=== PATIENT | male | born 1985 | race Caucasian/White ===

== ENCOUNTER 2022-09-25 18:49 | Observation (INO) ==
[2022-09-25] MEDS ORDERED: SODIUM CHLORIDE 0.9% 1000ML 1,000 ML IV STA (19:06)
--- NOTE | 2022-09-25 19:42 | XRay Report ---
XR chest 1V portable HISTORY: 37 years-old Male Chest pain, nonspecific acute chest pain COMPARISON: None TECHNIQUE: AP view of the chest FINDINGS: Cardiomediastinal and hilar silhouettes are within normal limits. No pneumothorax, pleural effusion, airspace consolidation or overt pulmonary edema. Bones of the chest appear grossly intact. IMPRESSION: No acute process. ACT 112: Negative or not required by law. The above report was generated using voice recognition software. It may contain grammatical, syntax o r spelling errors. Electronically signed by: Dionte Mishra M.D. 09/25/2022 7:41 PM
[2022-09-25 19:49] LABS: Basophils # (auto) 0.03 K/uL (0-0.2); Basophils % (auto) 0.3 %; Eosinophils # (auto) 0.23 K/uL (0-0.50); Eosinophils % (auto) 2.5 %; Hematocrit (blood only) 46.4 % (42.0-52.0); Immature Granulocytes # (auto) 0.06 K/uL (0.01-0.20); Immature Granulocytes % (auto) 0.7 %; Lymphocytes % (auto) 21.7 %; Mean Corpuscular Hgb Conc 36.6 g/dL (32.0-36.0); Mean Corpuscular Volume 84.7 fL (80.0-100.0); Mean Platelet Volume 10.9 fL (9.4-12.4); Monocytes % (auto) 6.5 %; Neutrophils % (auto) 68.3 %; Platelet Count 230 K/uL (130-400); RDW Coefficient of Variation 11.9 % (11.5-14.5); RDW Standard Deviation 35.8 fL (36.4-46.3); Red Blood Count 5.48 M/uL (4.70-6.10); White Blood Count 9.22 K/ul (4.8-10.8)
[2022-09-25 20:17] LABS: D Dimer < 190 ug/L FEU (0-500); Partial Thromboplastin Ratio 0.8; Partial Thromboplastin Time 23.1 Seconds (21.0-31.0); Prothrombin Time 10.6 Seconds (9.0-12.0)
[2022-09-25 20:19] LABS: BUN Creatinine Ratio 11.7 (10-20); Calcium 9.8 mg/dl (8.5-10.1); Est GFR (African American) 117.9 ml/min; Est GFR (Non-African American) 101.7 ml/min
[2022-09-25 20:27] LABS: Troponin I High Sensitivity 3.2 pg/ml (0-20)
[2022-09-25] MEDS ORDERED: LORazepam 1 MG TAB SL STA (21:04)
[2022-09-25] MEDS ORDERED: METOPROLOL TARTRATE 1 MG/ML VIAL IV STA (21:37)
--- NOTE | 2022-09-25 21:54 | Emergency Department Note ---
History of Present Illness General Chief complaint: Shortness of Breath/Dyspnea Stated complaint: SHORTNESS OF BREATH, DIZZINESS, LIGHTHEADED Time Seen by Provider: 09/25/22 19:02 History of Present Illness Provider complaint: Dizziness Onset (ago): day(s) 1 37-year-old male presents emergency department for dizziness. Patient reports over the last day has been feeling dizzy lightheaded felt like the room was spinning. He also reports shortness of breath. No headache chest pain or fever. No nausea vomiting or diarrhea. No melena or hematochezia. No colin turia. Patient denies any recent travel. No cough or hemoptysis. No recent surgeries. No exogenous hormone usage. Home Medications Medication Instructions Recorded Confirmed Type acetaminophen 500 mg tablet 1,000 mg PO Q6H PRN Pain 09/25/22 09/25/22 History (Tylenol Extra Strength) multivitamin 1 tab PO DAILY 09/25/22 09/25/22 History omeprazole magnesium 20 mg 20 mg PO DAILY PRN .heartburn 09/25/22 09/25/22 H istory tablet,delayed release (Prilosec OTC) Allergies Allergy/AdvReac Type Severity Reaction Status Date / Time No Known Allergies Allergy Unverified 09/25/22 21:28 Past Med/Surg History Medical History (Updated 09/25/22 @ 22:05 by Chad Ramírez) No pertinent family history No pertinent past medical history Surgical History (Updated 09/25/22 @ 21:49 by Chad Ramírez) No pertinent past surgical history Social History Smoking Status: Never smoker Feels Safe at Home: Yes Physical Exam Vital Signs Vital Signs - 24 hr 09/25/22 18:58 09/25/22 19:39 09/25/22 19:41 Temperature 37.1 C Temperature Source Temporal Artery Scan Pulse Rate 124 H Pulse Rate [Left Finger] Pulse Rate from SpO2 Sensor Pulse Rhythm Pulse Rhythm [Left Finger] Pulse Strength [Left Finger] Respiratory Rate 18 Respiratory Effort / Characteristics Non-Labored Spontaneous Non-Labored Respiratory Depth Normal Normal Respiratory Pattern Regular Blood Pressure 175/115 H Blood Pressure [Right Arm] Blood Pressure Mean 135 Blood Pressure Mean [Right Arm] Blood Pressure Position Sitting Blood Pressure Position [Right Arm] Pulse Oximetry 96 99 Oxygen Delivery Method Room Air Room Air Room Air Sepsis Recent Fever Within 48 Hours No Sepsis New/Unexplained Change in Mental Status N/A Sepsis Action Taken by Nursing No Action Required 09/25/22 21:02 09/25/22 19:51 09/25/22 20:00 Temperature Temperature Source Pulse Rate 120 H 101 H 110 H Pulse Rate [Left Finger] Pulse Rate from SpO2 Sensor 102 H 111 H Pulse Rhythm Regular Pulse Rhythm [Left Finger] Pulse Strength [Left Finger] Respiratory Rate 18 22 Respiratory Effort / Characteristics Respiratory Depth Respiratory Pattern Blood Pressure Blood Pressure [Right Arm] Blood Pressure Mean Blood Pressure Mean [Right Arm] Blood Pressure Position Blood Pressure Position [Right Arm] Pulse Oximetry 99 99 98 Oxygen Delivery Method Room Air Sepsis Recent Fever Within 48 Hours Sepsis New/Unexplained Change in Mental Status Sepsis Action Taken by Nursing 09/25/22 20:10 09/25/22 20:20 09/25/22 20:30 Temperature Temperature Source Pulse Rate 110 H 111 H 108 H Pulse Rate [Left Finger] Pulse Rate from SpO2 Sensor 108 H 114 H 110 H Pulse Rhythm Pulse Rhythm [Left Finger] Pulse Strength [Left Finger] Respiratory Rate 15 19 16 Respiratory Effort / Characteristics Respiratory Depth Respiratory Pattern Blood Pressure Blood Pressure [Right Arm] Blood Pressure Mean Blood Pressure Mean [Right Arm] Blood Pressure Position Blood Pressure Position [Right Arm] Pulse Oximetry 98 99 98 Oxygen Delivery Method Sepsis Recent Fever Within 48 Hours Sepsis New/Unexplained Change in Mental Status Sepsis Action Taken by Nursing 09/25/22 20:40 09/25/22 20:50 09/25/22 20:58 Temperature Temperature Source Pulse Rate 116 H 111 H 131 H Pulse Rate [Left Finger] Pulse Rate from SpO2 Sensor 115 H 119 H 133 H Pulse Rhythm Pulse Rhythm [Left Finger] Pulse Strength [Left Finger] Respiratory Rate 20 21 17 Respiratory Effort / Characteristics Respiratory Depth Respiratory Pattern Blood Pressure Blood Pressure [Right Arm] Blood Pressure Mean Blood Pressure Mean [Right Arm] Blood Pressure Position Blood Pressure Position [Right Arm] Pulse Oximetry 97 96 100 Oxygen Delivery Method Sepsis Recent Fever Within 48 Hours Sepsis New/Unexplained Change in Mental Status Sepsis Action Taken by Nursing 09/25/22 20:58 09/25/22 21:00 09/25/22 21:48 Temperature Temperature Source Pulse Rate 124 H 114 H Pulse Rate [Left Finger] Pulse Rate from SpO2 Sensor 123 H Pulse Rhythm Pulse Rhythm [Left Finger] Pulse Strength [Left Finger] Respiratory Rate 21 Respiratory Effort / Characteristics Respiratory Depth Respiratory Pattern Blood Pressure 173/109 H 171/102 H Blood Pressure [Right Arm] Blood Pressure Mean 130 Blood Pressure Mean [Right Arm] Blood Pressure Position Blood Pressure Position [Right Arm] Pulse Oximetry 100 Oxygen Delivery Method Sepsis Recent Fever Within 48 Hours Sepsis New/Unexplained Change in Mental Status Sepsis Action Taken by Nursing 09/25/22 21:51 Temperature Temperature Source Pulse Rate Pulse Rate [Left Finger] 114 H Pulse Rate from SpO2 Sensor Pulse Rhythm Pulse Rhythm [Left Finger] Regular Pulse Strength [Left Finger] Normal Respiratory Rate 18 Respiratory Effort / Characteristics Non-Labored Spontaneous Respiratory Depth Normal Respiratory Pattern Regular Blood Pressure Blood Pressure [Right Arm] 171/102 H Blood Pressure Mean Blood Pressure Mean [Right Arm] 125 Blood Pressure Position Blood Pressure Position [Right Arm] Lying Pulse Oximetry 99 Oxygen Delivery Method Room Air Sepsis Recent Fever Within 48 Hours Sepsis New/Unexplained Change in Mental Status Sepsis Action Taken by Nursing Physical Exam GENERAL: He is oriented to person, place, and time. He appears well-developed and well-nourished. He does not appear distressed. HENT: Exam performed. - Head: Normocephalic and atraumatic. EYES: Conjunctivae and EOM are normal. Right eye exhibits no discharge. Left eye exhibits no discharge. No scleral icterus. NECK: Normal range of motion. Neck supple. No JVD present. CV: Tachycardic rate, regular rhythm, normal heart sounds and intact distal pulses. There is no peripheral edema. Palpable radial pulses bue. PULM/CHEST: Effort normal and breath sounds normal. No respiratory distress. No stridor. He has no wheezes. He has no rales. - Chest Wall: He exhibits no tenderness. ABD: The abdomen is soft. He has no distension. No mass is present. There is no tenderness. LYMPH: No cervical adenopathy. NEURO: Motor and sensation grossly intact. SKIN: Skin is warm and dry. He is not diaphoretic. PSYCH: He has a normal mood and affect. Behavior is normal. Judgment and thought content normal. Course Course 1901: The patient was evaluated in room C3. A complete history and physical exam was performed Cardiac monitoring: An order was placed for continuous cardiac monitoring. The monitor shows a rate of 110 with sinus rhythm interpreted by me. 2044: Patient remains tachycardic. Labs and imaging are within normal limits including negative D-dimer and troponin. EKG does show T wave inversion in leads III and aVF. Patient will be admitted to [facility] team Dr. Steve notified. 2104: Patient is tachycardic. Repeat EKG shows sinus tachycardia. Patient rep orts he feels anxious within the hospital. Ativan will be given to the patient. 2134: Patient remains tachycardic. Still sinus rhythm on the monitor. Patient be given metoprolol. Administered Medications Discontinued Medications Sodium Chloride (Nss 1000ml) 1,000 mls @ 999 mls/hr IV .Q1H1M STA Stop: 09/25/22 20:06 Last Infusion: 09/25/22 20:42 Dose: 0 mls/hr Documented By: Admin: 09/25/22 19:26 Dose: 999 mls/hr Documented By: BUBBA Lorazepam (Lorazepam 1 Mg Tab) 1 mg SL NOW STA Stop: 09/25/22 21:05 Last Admin: 09/25/22 21:07 Dose: 1 mg Documented By: BUBBA Metoprolol Tartrate (Metoprolol Tartrate 1 Mg/Ml Vial) 5 mg IV NOW STA Stop: 09/25/22 21:38 Last Admin: 09/25/22 21:48 Dose: 5 mg Documented By: BUBBA Medical Decision Making Laboratory Data Attestation: I reviewed the patient's lab results. 09/25/22 19:30 09/25/22 19:30 Lab Results 09/25/22 09/25/22 09/25/22 Range/Units 19:20 19:30 19:30 WBC 9.22 (4.8-10.8) K/ul RBC 5.48 (4.70-6.10) M/uL Hgb 17.0 (14.0-18.0) g/dl Hct 46.4 (42.0-52.0) % MCV 84.7 (80.0-100.0) fL MCH 31.0 (25.0-34.0) pg MCHC 36.6 H (32.0-36.0) g/dL RDW Std Deviation 35.8 L (36.4-46.3) fL RDW Coeff of Ruth 11.9 (11.5-14.5) % Plt Count 230 (130-400) K/uL MPV 10.9 (9.4-12.4) fL Immature Gran % (Auto) 0.7 % Neut % (Auto) 68.3 % Lymph % (Auto) 21.7 % [place] % (Auto) 6.5 % Eos % (Auto) 2.5 % Baso % (Auto) 0.3 % Neut # (Auto) 6.30 (1.40-6.50) K/uL Lymph # (Auto) 2.00 (1.2-3.4) K/uL [place] # (Auto) 0.60 H (0.11-0.59) K/uL Eos # (Auto) 0.23 (0-0.50) K/uL Baso # (Auto) 0.03 (0-0.2) K/uL Immature Gran # (Auto) 0.06 (0.01-0.20) K/uL PT (9.0-12.0) Seconds INR (0.9-1.1) APTT (21.0-31.0) Seconds PTT Ratio D-Dimer (0-500) ug/L FEU Sodium 139 (136-145) mmol/L Potassium 4.0 (3.5-5.1) mmol/L Chloride 102 (98-107) mmol/L Carbon Dioxide 29 (21-32) mmol/L Anion Gap 8 (3-11) BUN 11 (6-23) mg/dl Creatinine 0.94 (0.6-1.4) mg/dl Est Cr Clr Drug Dosing 126.0 ml/min Est GFR ( Amer) 117.9 ml/min Est GFR (Non-Af Amer) 101.7 ml/min BUN/Creatinine Ratio 11.7 (10-20) Glucose 154 H (70-99(Fasting)) mg/dl Calcium 9.8 (8.5-10.1) mg/dl Troponin I High Sens 3.2 (0-20) pg/ml Lipase 49 (11-82) U/L SARS-CoV-2, RNA, NAAT NEGATIVE (NEGATIVE) 09/25/22 Range/Units 19:30 WBC (4.8-10.8) K/ul RBC (4.70-6.10) M/uL Hgb (14.0-18.0) g/dl Hct (42.0-52.0) % MCV (80.0-100.0) fL MCH (25.0-34.0) pg MCHC (32.0-36.0) g/dL RDW Std Deviation (36.4-46.3) fL RDW Coeff of Ruth (11.5-14.5) % Plt Count (130-400) K/uL MPV (9.4-12.4) fL Immature Gran % (Auto) % Neut % (Auto) % Lymph % (Auto) % [place] % (Auto) % Eos % (Auto) % Baso % (Auto) % Neut # (Auto) (1.40-6.50) K/uL Lymph # (Auto) (1.2-3.4) K/uL [place] # (Auto) (0.11-0.59) K/uL Eos # (Auto) (0-0.50) K/uL Baso # (Auto) (0-0.2) K/uL Immature Gran # (Auto) (0.01-0.20) K/uL PT 10.6 (9.0-12.0) Seconds INR 1.0 (0.9-1.1) APTT 23.1 (21.0-31.0) Seconds PTT Ratio 0.8 D-Dimer < 190 (0-500) ug/L FEU Sodium (136-145) mmol/L Potassium (3.5-5.1) mmol/L Chloride (98-107) mmol/L Carbon Dioxide (21-32) mmol/L Anion Gap (3-11) BUN (6-23) mg/dl Creatinine (0.6-1.4) mg/dl Est Cr Clr Drug Dosing ml/min Est GFR ( Amer) ml/min Est GFR (Non-Af Amer) ml/min BUN/Creatinine Ratio (10-20) Glucose (70-99(Fasting)) mg/dl Calcium (8.5-10.1) mg/dl Troponin I High Sens (0-20) pg/ml Lipase (11-82) U/L SARS-CoV-2, RNA, NAAT (NEGATIVE) Imaging Data Attestation: I personally reviewed and interpreted this imaging study as follows: My Impression: Chest x-ray negative. Airway clear. No pneumothorax. No consolidation. No cardiomegaly or cephalization.. No free air under the diaphragm. No fractures of the skeletal structures. Radiologist's Impression: Chest X-Ray 09/25/22 19:06 XR chest 1V portable HISTORY: 37 years-old Male Chest pain, nonspecific acute chest pain COMPARISON: None TECHNIQUE: AP view of the chest FINDINGS: Cardiomediastinal and hilar silhouettes are within normal limits. No pneumothorax, pleural effusion, airspace consolidation or overt pulmonary edema. Bones of the chest appear grossly intact. IMPRESSION: No acute process. ACT 112: Negative or not required by law. The above report was generated using voice recognition software. It may contain grammatical, syntax or spelling errors. Electronically signed by: Dionte Mishra M.D. 09/25/2022 7:41 PM ECG Data Attestation: I personally reviewed and interpreted this ECG as follows: Additional Comments: EKG #1 at 1912: Sinus rhythm with rate of 86. MD QRS and QTc intervals within normal limits. No ST elevation or ST depression. T wave inversion in lead III and aVF. EKG #2 at 2099: Sinus tachycardia with rate of 122. MD 144 QRS [address] elevation or ST depression. No ST elevation or ST depression. EKG #3 at 2100: Sinus rhythm with a rate of 130. MD 142 QRS [address] elevation or ST depression. [facility] Narrative 1901: The patient was evaluated in room C3. A complete history and physical exam was performed Cardiac monitoring: An order was placed for continuous cardiac monitoring. The monitor shows a rate of 110 with sinus rhythm interpreted by me. 2044: Patient remains tachycardic. Labs and imaging are within normal limits including negative D-dimer and troponin. EKG does show T wave inversion in leads III and aVF. Patient will be admitted to [facility] team Dr. Steve notified. 2104: Patient is tachycardic. Repeat EKG shows sinus tachycardia. Patient reports he feels anxious within the hospital. Ativan will be given to the patient. 2134: Patient remains tachycardic. Still sinus rhythm on the monitor. Patient be given metoprolol. Impression & Plan Shortness of breath Discharge Plan Visit Data Chief Complaint: Shortness of Breath/Dyspnea Stated Complaint: SHORTNESS OF BREATH, DIZZINESS, LIGHTHEADED ED Provider: Chad Ramírez Discharge Problem: Shortness of breath Patient Disposition: Being Evaluated by Hospitalist Forms Stand Alone Forms: My [facility] Prescriptions Prescriptions: No Action multivitamin Tablet 1 tab PO DAILY acetaminophen [Tylenol Extra Strength] 500 mg Tablet 1,000 mg PO Q6H PRN (Reason: Pain) omeprazole magnesium [Prilosec OTC] 20 mg Tablet,Delayed Release (Dr/Ec) 20 mg PO DAILY PRN (Reason: .heartburn) Referrals Referrals: PCP,NO [Primary Care Provider] -
[2022-09-26] MEDS ORDERED: LABETALOL HCL IV 5 MG/ML 20ML IV PRN (00:22)
[2022-09-26] MEDS ORDERED: ACETAMINOPHEN 325 MG TAB PO PRN (00:22)
[2022-09-26] MEDS ORDERED: POLYETHYLENE (MIRALAX) 17 GM PACK PO PRN (00:22)
[2022-09-26] MEDS ORDERED: NITROGLYCERIN SL 0.4 MG/TAB TAB SL PRN (00:22)
[2022-09-26] MEDS ORDERED: SODIUM CHLORIDE 0.9% 1000ML 1,000 ML IV SCH (00:22)
--- NOTE | 2022-09-26 03:03 | History and Physical Report ---
DATE OF ADMISSION: 09/25/2022. CHIEF COMPLAINT: Dizziness and shortness of breath. HISTORY OF PRESENT ILLNESS: A 37-year-old male with no significant past medical history, not gone to a doctor for a long time, presents with dizziness started today, lightheaded and also feeling on and off short of breath and chills. In her ER, his blood pressure was high and he was also tachycardic, received a dose of Lopressor and also has some EKG changes, so we were called for admission. Currently, resting comfortably, hemodynamically stable. He states that he ambulated in the ER to go to bathroom and did not feel dizzy at that time. Denies any chest pain, no palpitations, no nausea, no abdominal pain. Normal bowel and bladder movements. No swelling in the legs. Otherwise, before this, he was ambulating okay. Denies any headache. No neck pain. No blurred visions, no earache, no runny nose, no sore throat, no cough, no fevers. Appetite is okay. He states he has a family history of hypertension and also his grandmother had heart disease.. ALLERGIES: No known drug allergies. PAST MEDICAL HISTORY: None. PAST SURGICAL HISTORY: None. MEDICATIONS: None. FAMILY HISTORY: Significant for hypertension, father has high cholesterol, grandmother had heart disease. SOCIAL HISTORY: Denies any smoking. Alcohol, social. No drug use. REVIEW OF SYSTEMS: As per HPI. Rest of review of systems is negative. PHYSICAL EXAMINATION: GENERAL: The patient is of moderate build, not in acute distress. VITAL SIGNS: Temperature 37.1, pulse 114, respiratory rate 18, blood pressure 171/102, oxygen 99% on room air. HEENT: Pupils equal, round and reactive to light. Oral mucosa moist. NECK: No JVD or neck masses. CARDIOVASCULAR: S1 and S2 heard. Tachycardia. No murmurs. RESPIRATORY SYSTEM: Normal AP diameter. No accessory muscle use. No wheezing, no crackles. ABDOMEN: Soft, bowel sounds present, nontender, no distention. CENTRAL NERVOUS SYSTEM: Cranial nerves II through XII grossly intact, nonfocal. EXTREMITIES: No edema, no erythema. LABORATORY DATA: WBC 9.2, hemoglobin 17, hematocrit 46.4, platelets 230. PT 10.6, INR 1, APTT 23.1. D-dimer less than 190. Sodium 139, potassium 4, chloride 102, bicarbonate 29, BUN 11, creatinine 0.9, serum glucose 154, calcium 9.8. Troponin I high sensitivity 3.2, lipase 49. SARS-CoV-2 rapid test negative. IMAGING DATA: Chest x-ray, no acute process. EKG, sinus arrhythmia at a rate of 86, T-wave inversions in inferior leads. ASSESSMENT AND PLAN: This is a 37-year-old male, who presents with dizziness and on and off shortness of breath. 1. Dizziness and on and off shortness of breath and also he was tachycardic and hypertensive in the ER, hypertension could be causing the symptoms. Noted also EKG changes. Troponin is negative. We will follow serial cardiac enzymes. We will keep him n.p.o. Echocardiogram. IV labetalol p.r.n. Consult cardiology in the a.m. for further recommendations. Follow repeat EKG. Gentle fluids and will follow orthostatics 2. Deep venous thrombosis prophylaxis: Sequential compression devices for now. DISPOSITION: Closely monitor in the tele floor. Level 1 full code. Expect to discharge home and follow with family doctor. Job ID: [id number] [facility]
[2022-09-26 06:18] LABS: Basophils # (auto) 0.02 K/uL (0-0.2); Basophils % (auto) 0.2 %; Eosinophils # (auto) 0.25 K/uL (0-0.50); Eosinophils % (auto) 2.5 %; Hematocrit (blood only) 42.3 % (42.0-52.0); Hemoglobin 15.2 g/dl (14.0-18.0); Immature Granulocytes # (auto) 0.05 K/uL (0.01-0.20); Immature Granulocytes % (auto) 0.5 %; Lymphocytes # (auto) 2.96 K/uL (1.2-3.4); Lymphocytes % (auto) 29.5 %; Mean Corpuscular Hemoglobin 30.8 pg (25.0-34.0); Mean Corpuscular Hgb Conc 35.9 g/dL (32.0-36.0); Mean Corpuscular Volume 85.6 fL (80.0-100.0); Monocytes # (auto) 0.73 K/uL (0.11-0.59); Monocytes % (auto) 7.3 %; Neutrophils # (auto) 6.03 K/uL (1.40-6.50); Platelet Count 211 K/uL (130-400); RDW Coefficient of Variation 11.9 % (11.5-14.5); RDW Standard Deviation 36.6 fL (36.4-46.3); Red Blood Count 4.94 M/uL (4.70-6.10); White Blood Count 10.04 K/ul (4.8-10.8)
[2022-09-26 06:25] LABS: Troponin I High Sensitivity < 2.3 pg/ml (0-20)
[2022-09-26 06:47] LABS: Anion Gap 9 (3-11); Calcium 9.5 mg/dl (8.5-10.1); Carbon Dioxide 25 mmol/L (21-32); Chloride 108 mmol/L (98-107); Magnesium 1.6 mg/dl (1.7-2.4); Sodium 142 mmol/L (136-145)
[2022-09-26 06:53] LABS: BUN Creatinine Ratio 8.2 (10-20); Blood Urea Nitrogen 8 mg/dl (6-23); Creatinine Clr Calc Pharmacy 120.6 ml/min; Est GFR (African American) 112.1 ml/min; Est GFR (Non-African American) 96.7 ml/min; Glucose 103 mg/dl (70-99(Fasting))
[2022-09-26] MEDS ORDERED: MAGNESIUM SULFATE / D5W 1 GM/100 ML BAG IV ONE (08:22)
[2022-09-26] MEDS ORDERED: MULTIVITAMIN TAB PO SCH (09:00)
--- NOTE | 2022-09-26 10:40 | Electrocardiogram Report ---
Test Reason : Blood Pressure : / mmHG Vent. Rate : 086 BPM Atrial Rate : 086 BPM P-R Int : 146 ms QRS Dur : 094 ms QT Int : 352 ms P-R-T Axes : 060 085 -08 degrees QTc Int : 421 ms Sinus rhythm with marked sinus arrhythmia Abnormal ECG No previous ECGs available Confirmed by Galindo Grey ([id number]) on 09/26/2022 10:40:37 AM Referred By: REFERRED SELF Confirmed By:Galindo Grey
--- NOTE | 2022-09-26 10:41 | Electrocardiogram Report ---
Test Reason : Blood Pressure : / mmHG Vent. Rate : 130 BPM Atrial Rate : 130 BPM P-R Int : 142 ms QRS Dur : 090 ms QT Int : 316 ms P-R-T Axes : 042 037 -09 degrees QTc Int : 465 ms Poor data quality, interpretation may be adversely affected Sinus tachycardia T wave abnormality, consider inferior ischemia Abnormal ECG When compared with ECG of 25-SEP-2022 19:13, (unconfirmed) Vent. rate has increased BY 44 BPM Confirmed by Galindo Grey ([id number]) on 09/26/2022 10:40:52 AM Referred By: REFERRED SELF Confirmed By:Galindo Grey
--- NOTE | 2022-09-26 10:45 | Electrocardiogram Report ---
Test Reason : Blood Pressure : / mmHG Vent. Rate : 092 BPM Atrial Rate : 092 BPM P-R Int : 162 ms QRS Dur : 080 ms QT Int : 358 ms P-R-T Axes : 055 043 016 degrees QTc Int : 442 ms Normal sinus rhythm Possible Left atrial enlargement Septal infarct , age undetermined Abnormal ECG When compared with ECG of 25-SEP-2022 21:01, (unconfirmed) Septal infarct is now Present Non-specific change in ST segment in Lateral leads Confirmed by Galindo Grey ([id number]) on 09/26/2022 10:45:30 AM Referred By: REFERRED SELF Confirmed By:Galindo Grey
[2022-09-26] MEDS ORDERED: LOSARTAN POTASSIUM 25 MG TAB PO SCH (11:30)
--- NOTE | 2022-09-26 11:38 | Cardiology Consultation ---
Date of Consultation September 26, 2022 Assessment & Plan (1) Hypertensive urgency: (2) Palpitation: (3) Hypomagnesemia: Plan 37-year-old patient admitted with elevated blood pressure open (new diagnosis) and symptoms including palpitations, shortness of breath, and dizziness. ECG w ith inferior T wave abnormality in setting of elevated blood pressure. T wave improved per repeat ECG this morning. No chest discomfort or heaviness. Cardiac enzymes are undetectable. His resting 2D transthoracic echocardiogram is essentially normal. Symptoms possibly due to uncontrolled hypertension. Recommend addition of losartan 25 mg daily. Discussed inpatient versus outpatient stress testing. Patient agreeable to stress testing at the [facility]. Recommend 14-day ZIO monitor for further evaluation of palpitations. TSH will be assessed at this time for completeness. Replace magnesium as indicated. Recommend addition of oral magnesium supplementation at discharge. Sodium restriction advised. Consider CT of the head for further evaluation of dizziness in the setting of hypertensive urgency. All questions answered to satisfaction of patient and his family members at bedside. History of Present Illness Reason for Consultation: Dizziness, shortness of breath, abnormal ECG Requesting Physician: Dr. Steve Attending Physician: Clifford Camejo MD History of Present Illness 37-year-old patient presented to the ER with dizziness with associated shortness of breath and palpitations. Symptoms began yesterday at approximately 3 PM. Patient proceeded to bahai although, symptoms persisted. Thought perhaps symptoms would improve if he ate something. Proceeded to local fast food restaurant and ate a hamburger which also did not improve symptoms. Due to ongoing dizziness, palpitations, and intermittent shortness of breath he proceeded to the ER. In the emergency department he was found to be hypertensive and tachycardic. ECG revealing sinus tachycardia. Inferior T wave abnormality noted on admission. No old ECG for comparison. Denies any chest discomfort, orthopnea, PND, or lower extremity edema. Notes feeling "dizzy" without syncope or near syncope. No weight gain, focal weakness, visual changes, slurred speech, or paresthesias. Treated with 5 mg of intravenous Lopressor in the ER. Blood pressure this morning improved. Preliminary review of bedside 2D transthoracic echocardiogram demonstrates normal left ventricular systolic function. No significant valvular pathology. Telemetry revealing sinus rhythm and sinus tachycardia. Allergies Allergy/AdvReac Type Severity Reaction Status Date / Time No Known Allergies Allergy Unverified 09/25/22 21:28 Home Medications Medication Instructions Recorded Confirmed Type acetaminophen 500 mg tablet 1,000 mg PO Q6H PRN Pain 09/25/22 09/25/22 History (Tylenol Extra Strength) multivitamin 1 tab PO DAILY 09/25/22 09/25/22 History omeprazole magnesium 20 mg 20 mg PO DAILY PRN .heartburn 09/25/22 09/25/22 History tablet,delayed release (Prilosec OTC) Patient History Medical History No pertinent family history No pertinent past medical history Surgical History No pertinent past surgical history Social History Smoking Status: Never smoker Hx Alcohol Use: Yes Alcohol type: hard liquor Hx Substance Use: No Preferred Language: Spanish Communication Ability: Effective Regulatory Law Specialist Required: No Beliefs That Will Affect Care: None Current Living Situation: Alone Feels Safe at Home: Yes Assistive Devices: Glasses Review of Systems Review of Systems: All systems reviewed & are unremarkable except as noted in Subjective Physical Exam Constitutional: well developed and well nourished; no acute distress Respiratory: no respiratory distress, no labored breathing and no retractions Auscultation: lungs clear to auscultation bilaterally; no crackles, no rales, no rhonchi and no wheezes Cardiovascular: Rate/Rhythm: regular rate and regular rhythm Heart Sounds: normal S1 and normal S2; no murmur Vessels: no JVD and no carotid bruit Extremities: no edema Gastrointestinal (Abdomen): Inspection/Auscultation: abdomen normal to inspection and normal bowel sounds; abdomen not distended Neurologic: CN's II-XI intact bilaterally and moves all extremities; no focal motor deficits Psychiatric: A+Ox3, euthymic affect Results & Data ([facility]) Vital Signs (Past 12 Hours) Vital Signs Temp Pulse Pulse Resp BP Pulse Ox O2 Del Method 09/26/22 08:27 37.0 C 93 H 18 138/79 99 Room Air 09/26/22 07:00 90 09/26/22 02:59 36.5 C 91 H 129/78 99 Room Air 09/26/22 00:59 92 H 09/26/22 00:24 36.8 C 108 H 18 135/93 99 Room Air 09/25/22 23:57 106 H 98 Room Air 09/25/22 23:51 102 H 142/97 H 97 Room Air
--- NOTE | 2022-09-26 12:16 | CT Scan Report ---
CT SCAN OF THE BRAIN WITHOUT IV CONTRAST CLINICAL HISTORY: Dizziness. COMPARISON STUDY: No priors. TECHNIQUE: Unenhanced axial CT scan of the brain is performed from the vertex to the skull base. A d ose lowering technique was utilized adhering to the principles of ALARA. CT DOSE: 614.27 mGy.cm FINDINGS: Brain parenchyma: The brain parenchyma is normal in appearance. There is no hemorrhage, mass effect, or evidence of acute territorial ischemia by CT criteria. Chandler-white matter differentiation is preser yazan. No extra-axial fluid collection is seen. Ventricles, sulci, cisterns: Normal in configuration. Intracranial vasculature: The visualized intracranial vasculature at the skull base is normal in appe arance. Calvarium: Unremarkable. Sinuses and mastoids: The visualized paranasal sinuses are clear. The mastoid air cells are well pneu matized. Orbits: The bony orbits are grossly intact. IMPRESSION: No acute intracranial abnormality. ACT 112: Negative or not required by law. Electronically signed by: Alberto Cuellar M.D. 09/26/2022 12:14 PM
--- NOTE | 2022-09-26 14:04 | Discharge Summary ---
Date of Service September 26, 2022 Admission HPI Per Admitting Provider A 37-year-old male with no significant past medical history, not gone to a doctor for a long time, presents with dizziness started today, lightheaded and also feeling on and off short of breath and chills. In her ER, his blood pressure was high and he was also tachycardic, received a dose of Lopressor and also has some EKG changes, so we were called for admission. Currently, resting comfortably, hemodynamically stable. He states that he ambulated in the ER to go to bathroom and did not feel dizzy at that time. Denies any chest pain, no palpitations, no nausea, no abdominal pain. Normal bowel and bladder m ovements. No swelling in the legs. Otherwise, before this, he was ambulating okay. Denies any headache. No neck pain. No blurred visions, no earache, no runny nose, no sore throat, no cough, no fevers. Appetite is okay. He states he has a family history of hypertension and also his grandmother had heart disease. Admission Exam Per Admitting Provider GENERAL: The patient is of moderate build, not in acute distress. VITAL SIGNS: Temperature 37.1, pulse 114, respiratory rate 18, blood pressure 171/102, oxygen 99% on room air. HEENT: Pupils equal, round and reactive to light. Oral mucosa moist. NECK: No JVD or neck masses. CARDIOVASCULAR: S1 and S2 heard. Tachycardia. No murmurs. RESPIRATORY SYSTEM: Normal AP diameter. No accessory muscle use. No wheezing, no crackles. ABDOMEN: Soft, bowel sounds present, nontender, no distention. CENTRAL NERVOUS SYSTEM: Cranial nerves II through XII grossly intact, nonfocal. EXTREMITIES: No edema, no erythema. Principal Diagnosis Dizziness, abnormal ECG Uncontrolled hypertension Discharge Exam GENERAL: The patient is of moderate build, not in acute distress. HEENT: Pupils equal, round and reactive to light. Oral mucosa moist. NECK: No JVD or neck masses. CARDIOVASCULAR: S1 and S2 heard. RRR. No murmurs. RESPIRATORY: Normal AP diameter. No accessory muscle use. No wheezing, no crackles. ABDOMEN: Soft, bowel sounds present, nontender, no distention. NEURO:Awake alert oriented, answering questions appropriately, speech fluent, moves extremities EXTREMITIES: No edema, no erythema. Discharge Data Allergies Allergy/AdvReac Type Severity Reaction Status Date / Time No Known Allergies Allergy Unverified 09/25/22 21:28 Consultations 09/25/22 20:38 ED Decision to Admit Stat 09/26/22 08:00 Consult Cardiology Routine Ordered Studies 09/26/22 11:37 CT head/brain wo con Urgent FINDINGS: Brain parenchyma: The brain parenchyma is normal in appearance. There is no hemorrhage, mass effect, or evidence of acute territorial ischemia by CT criteria. Chandler-white matter differentiation is preserved. No extra-axial fluid collection is seen. Ventricles, sulci, cisterns: Normal in configuration. Intracranial vasculature: The visualized intracranial vasculature at the skull base is normal in appearance. Calvarium: Unremarkable. Sinuses and mastoids: The visualized paranasal sinuses are clear. The mastoid air cells are well pneumatized. Orbits: The bony orbits are grossly intact. IMPRESSION: No acute intracranial abnormality. Hospital Course (1) Abnormal ECG: This is a 37-year-old male, who presents with dizziness and on and off shortness of breath. 1. Dizziness and on and off shortness of breath and also he was tachycardic and hypertensive in the ER, hypertension could be causing the symptoms. Noted also EKG changes- T wave inversions. T wave improved per repeat ECG this morning. Troponin is negative. Received gentle fluids on admission. IV labetalol p.r.n. CT head negative TSH normal Echocardiogram. EF 65 to 70%. LV wall motion is normal. No significant valvular pathology. There is no pericardial effusion. Consulted cardiology for further recommendations. Symptoms possibly due to uncontrolled hypertension. Recommend starting losartan 25 mg daily for BP control. Patient slightly hypomagnesemic, IV mag repletion while in the hospital. Will DC on magnesium supplement. Discussed inpatient versus outpatient stress testing. Patient agreeable to stress testing at the [facility]. Recommend 14-day ZIO monitor for further evaluation of palpitations. Sodium restriction advised. DISPOSITION:Plan to follow up w/ PCP and cardiology. Total Time Total Time Spent Total Time Spent (In Minutes): 40 Discharge Plan Discharge Items Patient Disposition: Home - Self-Care Reason For Visit: SOB, DIZZY Discharge Diagnosis: Dizziness, abnormal ECG Uncontrolled hypertension Activity: Per Instructions section Non-emergency contact: Primary Care Provider and Criminalist Technician Call non-emergency contact if: you have any medication questions and your symptoms worsen Follow-up/Referrals: PCP,NO [Primary Care Provider] - Diet: Heart Healthy and Low Sodium (2gm) Addtl Attending Provider Instructions: Follow-up with primary care doctor and practical nurse. You will be contacted about the appointment. Take losartan 25 mg daily to control your blood pressure. Take magnesium supplement as prescribed. Pending Studies at Discharge: No Stand-Alone Forms: My [facility], Smoking Cessation Medications and DC Order Prescriptions: New losartan 25 mg Tablet 25 mg PO QAM Qty: 30 0RF magnesium oxide 500 mg tablet 500 mg PO DAILY Qty: 10 0RF Continued multivitamin Tablet 1 tab PO DAILY acetaminophen [Tylenol Extra Strength] 500 mg Tablet 1,000 mg PO Q6H PRN (Reason: Pain) omeprazole magnesium [Prilosec OTC] 20 mg Tablet,Delayed Release (Dr/Ec) 20 mg PO DAILY PRN (Reason: .heartburn) Discharge Orders: Discharge Order (Routine); Ordered 09/26/22 Ordered By: Clifford Camejo Admission Data Admit Date/Time: 09/25/22 23:06 Attending Provider: Clifford Camejo Admit Provider: Phillip Steve Primary Care Provider: PCP,NO Other Providers: Phillip Steve ; Alex Brady ; Gilberto Suh ; Isai Murray ; Romain Saravia ; Silverio Huntley ; Jaden Caro ; Odalys Arechiga ; Nubia Stephens ; Breana Gaffney ; Wilfred Carrasquillo
== END 2022-09-26 14:24 | disposition home or self-care (01) ==
LOC: 4W 18:49 → ED 18:49 → 4W 23:57